=== PATIENT | female | born 1970 | race Two or more races ===

== ENCOUNTER 2022-05-04 05:48 | Day surgery (SDC) | payer OTHER ==
[~2022-05-04] VITALS: Ht 165.1 cm; Wt 61.2 kg
== END 2022-05-04 16:40 | disposition home or self-care (01) ==
LOC: CIR.AMB 05:48 → AMB-ENDOS 06:00 → CIR.AMB 06:00 → AMB-ENDOS 15:00 → CIR.AMB 15:00
PROVIDERS: ATTEND Surgery
DX: D05.12 Intraductal carcinoma in situ of left breast (principal); R59.0 Localized enlarged lymph nodes; Z17.0 Estrogen receptor positive status [ER+]; Z42.1 Encounter for breast reconstruction following mastectomy; Z20.822 Contact with and (suspected) exposure to COVID-19
CPT/HCPCS: 19303; 19340; 38525; 78195; A9541